=== PATIENT | female | born 1935 | race Caucasian/White ===

== ENCOUNTER 2018-07-31 21:11 | Emergency (ER) | payer OTHER, MEDICARE ==
[~2018-07-31] VITALS: Ht 160 cm; Wt 90.7 kg
[2018-07-31 21:30] VITALS: Ht 160 cm; Wt 90.7 kg
[2018-07-31 23:02] VITALS: BP 120/68
== END 2018-07-31 23:02 | disposition home or self-care (01) ==
LOC: ED 21:11
DX: J20.9 Acute bronchitis, unspecified (principal); I10 Essential (primary) hypertension; E78.00 Pure hypercholesterolemia, unspecified; Z90.49 Acquired absence of other specified parts of digestive tract; Z98.890 Other specified postprocedural states